=== PATIENT | female | born 1990 | race Caucasian/White ===

== ENCOUNTER 2020-07-17 18:05 | Emergency (ER) | payer OTHER, SELFPAY ==
--- NOTE | ~2020-07-17 | XR_ITS ---
EXAMINATION: XR chest 1V portable EXAM DATE: 07/17/2020 19:21 INDICATION: Chest pain, shortness of breath and cough. TECHNIQUE: Portable AP frontal chest x-ray was obtained. Comparison is made to prior examination from 01/16/2007. FINDINGS: The lungs are clear. There are no pleural effusions. The cardiomediastinal silhouette is within normal limits. There is no pneumothorax suspected. The bones and soft tissues are unremarkab le. IMPRESSION: No acute cardiopulmonary findings. Reviewed, dictated and finalized at location A.
--- NOTE | 2020-07-17 18:08 | ECG_ITS ---
Measurements Intervals [place] Rate: 107 P: 3 LA: 114 QRS: 47 QRSD: 87 T: 18 QT: 327 QTc: 438 Interpretive Statements SINUS TACHYCARDIA WITH SHORT LA INTERVAL BORDERLINE ST-T WAVE ABNORMALITY- INFERIOR LEADS ABNORMAL ECG Electronically Signed On 07-17-2020 19:34:24 CDT by Sukumar Singh D.O.
[2020-07-17 18:30] VITALS: BP 140/91; PULSE 116; RESP 20; TEMP 36.5; O2SAT 96
--- NOTE | 2020-07-17 19:07 | ED.CHESTPAIN ---
HPI - Chest Pain General Chief Complaint: Chest Pain Stated Complaint: Chest pain/ SOB Time Seen by Provider: 07/17/20 19:06 History of Present Illness HPI narrative: 29 yo female at 16 weeks gestation presents to the ED c/o chest pain, COugh. She has had chest pain, cough, congestion, wheezing, and SOB for the past 2 days. The pain is substernal pressure. It is worse with takinga deep breath or coughing. SHe says that she has similar symptoms every year at this time. It is usually relieved by albuterol, but this time it was not. She has been told that she has seasonal asthma. No fever, chills, calf pain/swelling, weakness. 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 Related Data Allergies Allergy/AdvReac Type Severity Reaction Status Date / Time No Known Allergies Allergy Mild Verified 06/03/11 08:27 Review of Systems Review of Systems: All systems reviewed & are unremarkable except as noted in HPI and below Constitutional: Constitutional: Denies fever(s) and Denies weakness ENT: Reports nasal congestion and Denies sore throat Cardiovascular: Cardiovascular: Reports chest pain Respiratory: Respiratory: Reports cough, Reports dyspnea and Reports wheezing Gastrointestinal: Gastrointestinal: Denies abdominal pain, Denies nausea and Reports vomiting Genitourinary: Genitourinary: Denies abnormal vaginal bleeding, Denies hematuria, Denies dysuria, Denies pelvic pain and Denies vaginal discharge Neurologic: Denies numbness and Denies weakness [facility] Family History Family History Father Family history of elevated blood lipids Mother Family history of liver disease Sibling Family history of diabetes mellitus in first degree relative Grandparent Family history of lung cancer Social History Social History Smoking status: Never smoker Alcohol intake: never Exam Const: General: healthy appearing, no acute distress and alert Orientation/consciousness: patient oriented x3 HENMT: Head: normal to inspection Neck: Neck: normal visual inspection and no lymphadenopathy Chest: Chest palpation & inspection: no tenderness Resp: Effort & Inspection: normal respiratory effort Auscultation: wheezes inspiratory wheezes and throughout Cardio: Jugular venous distension: no JVD Rate: regular rate Rhythm: regular rhythm Heart sounds: no murmurs GI: Inspection: non-distended GI Palp: Yes Soft to palpation and No Tenderness to palpation present (GI) Skin: General skin exam: normal color Neuro: General: patient oriented x3 and moves all extremities Speech: normal speech Extrem: General: no edema Other: no calf tenderness Psych: Appearance: well kempt Affect: normal affect Course Vital Signs Vital signs: Vital Signs Temperature 36.5 C 07/17/20 18:30 Pulse Rate 116 H 07/17/20 18:30 Respiratory Rate 20 07/17/20 18:30 Blood Pressure 140/91 H 07/17/20 18:30 Pulse Oximetry 96 07/17/20 18:30 Temperature 36.5 C 07/17/20 18:30 Pulse Rate 70 07/17/20 21:46 Respiratory Rate 18 07/17/20 21:46 Blood Pressure 132/78 07/17/20 21:46 Pulse Oximetry 99 07/17/20 21:46 MDM - Chest Pain MDM Narrative Medical decision making narrative: DD: Pneumonia, Bronchitis, COVID-19, asthma Medical Records Data Attestation: I reviewed the patient's medical records. Lab Data Attestation: I reviewed the patient's lab results. Result diagrams: 07/17/20 20:11 07/17/20 20:11 Labs: Lab Results 07/17/20 07/17/20 07/17/20 Range/Units 20:11 20:11 20:13 WBC 12.0 H (4.5-10.0) K/mm3 RBC 4.54 (4.2-5.4) M/mm3 Hgb 13.7 (12.0-15.0) g/dL Hct 40.5 (37.0-47.0) % MCV 89.2 (80-100) fl MCH 30.2 (26-34) pg MCHC 33.8 (32-36) g/dl RDW 13.5 (11.5-14.5) % Plt Count 248 (150-375) k/mm3 MPV 9.2 (7.4-10.4) f
[2020-07-17] MEDS: ALBUTEROL SULFATE NEB 2.5 MG/0.5 ML INH 5 MG INHALATION ×2 (19:35→21:25)
[2020-07-17 19:37] VITALS: PULSE 104; RESP 20
[2020-07-17 19:46] VITALS: PULSE 104; RESP 20
[2020-07-17 20:20] LABS: Basophils Percent Auto 0.3 % (0.2-1.2); Eosinophils Absolute Auto 0.2 K/mm3 (0-0.3); Eosinophils Percent Auto 1.9 % (0-4.4); Hematocrit 40.5 % (37.0-47.0); Hemoglobin 13.7 g/dL (12.0-15.0); Immature Granulocyte Absolute 0.03 K/mm3 (0.00-0.031); Immature Granulocyte Percent A 0.3 % (0-0.5); Lymphocytes Absolute Auto 1.33 K/mm3 (0.9-3.2); Lymphocytes Percent Auto 11.1 % (18.3-44.2); Mean Corpuscular HGB Conc 33.8 g/dl (32-36); Mean Corpuscular Hemoglobin 30.2 pg (26-34); Mean Corpuscular Volume 89.2 fl (80-100); Mean Platelet Volume 9.2 fl (7.4-10.4); Monocytes Absolute Auto 0.5 K/mm3 (0.1-0.6); Monocytes Percent Auto 4.3 % (2.6-8.5); Neutrophils Absolute Auto 9.8 K/mm3 (1.3-6.7); Neutrophils Percent Auto 82.1 % (45.5-73.1); Platelet Count Result 248 k/mm3 (150-375); Red Blood Count 4.54 M/mm3 (4.2-5.4); Red Cell Distribution Width 13.5 % (11.5-14.5)
[2020-07-17 20:28] LABS: Anion Gap 9 mmol/L (8-16); Blood Urea Nitrogen 4 mg/dL (7-17); Calcium 9.2 mg/dL (8.4-10.2); Carbon Dioxide 21 mmol/L (22-30); Chloride 106 mmol/L (98-107); Estimated CRCL calculation 164 ml/min; Estimated Glomerular Filt Rate > 60; Glucose 106 mg/dL (65-105); Potassium 3.5 mmol/L (3.4-5.0); Sodium 136 mmol/L (137-145)
[2020-07-17] MEDS: predniSONE 20 MG TABLET 40 MG PO (21:03)
[2020-07-17 21:46] VITALS: BP 132/78; PULSE 70; RESP 18; O2SAT 99
[2020-07-18 14:12] LABS: SARS-CoV-2 RNA PCR Negative
== END 2020-07-17 21:47 | disposition home or self-care (01) ==
PROVIDERS: Emergency Medicine; Emergency Provider Emergency Medicine; PCP Family Medicine Adolescent Medicine
DX: O99.512 Diseases of the respiratory system complicating pregnancy, second trimester (principal); J40 Bronchitis, not specified as acute or chronic; Z3A.16 16 weeks gestation of pregnancy; R00.0 Tachycardia, unspecified; R94.31 Abnormal electrocardiogram [ECG] [EKG]
CPT/HCPCS: 36415; 71045; 80048; 85025; 87635; 93005; 99283; C9803; J7512; U0003

== ENCOUNTER 2024-02-09 07:55 | Inpatient (IN) | payer OTHER, SELFPAY ==
[2024-02-09] VITALS (36 sets, daily range): BP systolic 106–153; BP diastolic 50–99; PULSE 87–126; RESP 15–36; TEMP 36.6–36.8; O2SAT 86–100; BMI 50.1
--- NOTE | ~2024-02-09 | XR_ITS ---
XR chest 2V DATE: 02/11/2024 10:37 INDICATION: Pneumonia TECHNIQUE: PA and lateral views COMPARISON: 02/09/2024 CTA chest FINDINGS: Normal heart size. No hilar or mediastinal enlargement. Minimal infiltrate or atelectasis i s suggested in the lower lung zones. The lungs otherwise appear clear. No pleural effusion or pulmona ry vascular congestion or pneumothorax. No hilar or mediastinal enlargement. IMPRESSION: Minimal infiltrate or atelectasis in the lower lung zones Reviewed, dictated and finalized at location A.
--- NOTE | ~2024-02-09 | CT_ITS ---
Clinical Indication: Dyspnea CT Scan of the Chest with Contrast: Technique: Contiguous sections were acquired throughout the chest after intravenous administration of 100 cc of Omnipaque 350. Dose reduction technique was used on this scan by utilizing automated expos ure control and iterative reconstruction technique. The dose-length product (DLP) was 973.40 mGy-cm. Findings: There is no evidence of any significant mediastinal, hilar or axillary lymphadenopathy. There is no f illing defect in the pulmonary arterial tree to suggest pulmonary embolus. There is no evidence of ao rtic dissection or aneurysm. There is no evidence of pleural or pericardial effusion. There is mild patchy ground glass opacity in the right middle lobe and left lower lobe, suspicious fo r pneumonia. Images through the upper abdomen reveal no abnormalities. Impression: No evidence of pulmonary embolus, aortic dissection, or aortic aneurysm. Mild patchy groundglass opacity right middle lobe and left lower lobe, compatible with pneumonia. Reviewed, dictated and finalized at [facility]. Impression: No evidence of pulmonary embolus, aortic dissection, or aortic aneurysm. Mild patchy groundglass opacity right middle lobe and left lower lobe, compatib le with pneumonia.
--- NOTE | 2024-02-09 07:58 | ECG_ITS ---
SEE SCANNED COPY FOR CONFIRMED REPORT MTDD
[2024-02-09 08:23] LABS: Basophils Absolute Auto 0.1 K/mm3 (0.0-0.1); Basophils Percent Auto 0.4 % (0.2-1.2); Eosinophils Absolute Auto 0.5 K/mm3 (0-0.3); Eosinophils Percent Auto 3.8 % (0-4.4); Hematocrit 40.1 % (37.0-47.0); Hemoglobin 12.2 g/dL (12.0-15.0); Immature Granulocyte Absolute 0.05 K/mm3 (0.00-0.031); Immature Granulocyte Percent A 0.4 % (0-0.5); Lymphocytes Absolute Auto 1.69 K/mm3 (0.9-3.2); Lymphocytes Percent Auto 12.2 % (18.3-44.2); Mean Corpuscular HGB Conc 30.4 g/dl (32-36); Mean Corpuscular Hemoglobin 23.8 pg (26-34); Mean Corpuscular Volume 78.2 fl (80-100); Mean Platelet Volume 9.5 fl (7.4-10.4); Monocytes Absolute Auto 0.6 K/mm3 (0.1-0.6); Monocytes Percent Auto 4.3 % (2.6-8.5); Neutrophils Absolute Auto 10.9 K/mm3 (1.3-6.7); Neutrophils Percent Auto 78.9 % (45.5-73.1); Platelet Count Result 367 k/mm3 (150-375); Red Blood Count 5.13 M/mm3 (4.2-5.4); Red Cell Distribution Width 15.6 % (11.5-14.5); White Blood Count 13.8 K/mm3 (4.5-10.0)
[2024-02-09 08:33] LABS: Alanine Aminotransferase 24 U/L (6-35); Albumin Level 4.8 g/dL (3.5-5.1); Alkaline Phosphatase 77 U/L (38-126); Anion Gap 11 mmol/L (4-12); Aspartate Amino Transferase 21 U/L (14-36); Blood Urea Nitrogen 9 mg/dL (7-17); Calcium 9.6 mg/dL (8.4-10.2); Carbon Dioxide 20 mmol/L (22-30); Chloride 109 mmol/L (98-107); Estimated CRCL calculation 147 ml/min; Estimated Glomerular Filt Rate > 60; Glucose 148 mg/dL (65-110); Lipase 46 U/L (23-300); Potassium 3.9 mmol/L (3.4-5.0); Sodium 140 mmol/L (137-145)
[2024-02-09 08:38] LABS: Prothrombin Time 13.5 Seconds (11.1-14.7)
[2024-02-09] MEDS: SODIUM CHLORIDE 0.9% IV 1,000 ML 999 ML IV CONT (08:38)
[2024-02-09] MEDS: ONDANSETRON INJ 4 MG/2 ML VIAL IV PUSH (08:38)
[2024-02-09 08:39] LABS: Partial Thromboplastin Time 27.7 Seconds (22.3-36.8)
[2024-02-09] MEDS: MECLIZINE HCL 25 MG TABLET PO (08:39)
--- NOTE | 2024-02-09 08:43 | ED.GENADULT ---
HPI - General Adult General Chief complaint: Chest Pain Stated complaint: SOB/chest pain Time Seen by Provider: 02/09/24 08:01 History of Present Illness HPI narrative: patient is a 33-year-old female who presents ER with shortness of breath. Sudden onset this morning when waking up. She has had a cough for the last couple of days. No documented fevers. Today she is also having chest tightness. She is feeling spinning vertigo that is associated with nausea and sweats. No known sick contacts. No alleviating factors. No history DVT/ PE. She does have pain with deep breath. Related Data Allergies Allergy/AdvReac Type Severity Reaction Status Date / Time No Known Allergies Allergy Mild Verified 02/09/24 08:11 Review of Systems Review of Systems: All systems reviewed & are unremarkable except as noted in HPI and below Constitutional: Constitutional: Reports no additional constitutional complaints ENT: Reports system reviewed and no additional complaints, except as documented Cardiovascular: Cardiovascular: Reports chest pain, Denies rapid heart rate, Denies radiating jaw, neck or arm pain and Denies slow heart rate Respiratory: Respiratory: Reports cough, Reports dyspnea and Denies wheezing Gastrointestinal: Gastrointestinal: Reports no additional gastrointestinal complaints Musculoskeletal: Musculoskeletal: Reports no additional musculoskeletal complaints [facility] Past Medical History Medical History (Updated 02/09/24 @ 19:26 by Fidencio Copeland MD) Healthy female adult Surgical History Surgical History (Updated 02/09/24 @ 19:24 by Fidencio Copeland MD) History of section Family History Family History Father Family history of elevated blood lipids Mother Family history of liver disease Sibling Family history of diabetes mellitus in first degree relative Grandparent Family history of lung cancer Social History Social History Smoking status: Never smoker Alcohol intake: never Substance use: never Do You Feel Safe in your Home?: Yes Lack of Transportation: YES Lack of Food: Never True Current Housing: I Have Housing Concerned About Future Housing: No Difficulty Paying Gas/Electric Bills: No Difficulty Paying for Meds: No Currently Unemployed: No Education: Bachelor's Degree Difficulty w/ Childcare or Family Care: No Spiritual care concerns: No Exam Narrative: GENERAL: anxious appearing, morbidly obese, and in distress. HEAD: Normocephalic, atraumatic. EYES: PERRL and EOMI. ENT: Mucous membranes moist. CHEST: very faint basilar wheezing. mild respiratory distress. HEART: Regular rate and rhythm. Normal peripheral pulses. ABDOMEN: Soft, nontender, nondistended. EXTREMITIES: Normal range of motion. No edema. SKIN: Warm, dry, no rash. NEURO: Alert and oriented x3. PSYCH: Normal mood and affect. Course Course Emergency Course: patient developing hypoxia while here. Hypoxia significant increased after nebulizer treatment. No pulmonary embolism. Patient does have pneumonia. Will add on viral panel. Patient started on IV antibiotics and is currently on high-flow O2. She will go to the IMU. Patient accepted by the hospitalist service. Vital Signs Vital signs: Vital Signs Pulse Rate 113 H 02/09/24 08:01 Respiratory Rate 18 02/09/24 08:01 Blood Pressure 153/99 H 02/09/24 08:01 Pulse Oximetry 92 02/09/24 08:01 Temperature 98.1 F 02/09/24 15:15 Pulse Rate 90 02/09/24 18:26 Respiratory Rate 16 02/09/24 18:26 Blood Pressure 126/73 02/09/24 15:15 Pulse Oximetry 100 02/09/24 15:15 Oxygen Delivery High Flow Nasal Cannula 02/09/24 12:53 Oxygen Flow Rate 7 02/09/24 12:53 Medical Decision Making Vital Signs Vital Signs: Vital Signs Pulse Rate 113 H 02/09/24 08:01 Respiratory Ra
[2024-02-09 08:48] LABS: Troponin I < 0.012 ng/mL (0.000-0.034)
[2024-02-09 08:56] LABS: D Dimer 0.27 ug/mL (<0.48)
[2024-02-09] MEDS: IPRATROPIUM 0.5 MG/ALBUTEROL SULFATE 2.5 MG AMPUL.NEB 3 ML INHALATION ×2 (09:33→18:20)
[2024-02-09] MEDS: ALBUTEROL SULFATE NEB 2.5 MG/3 ML INH 15 MG INHALATION (10:46)
[2024-02-09] MEDS: IPRATROPIUM BR 0.02% INH SOLN 0.5 MG/2.5 ML VIAL 1.5 MG INHALATION (10:46)
--- NOTE | 2024-02-09 11:19 | ECG_ITS ---
SEE SCANNED COPY FOR CONFIRMED REPORT MTDD
[2024-02-09] MEDS: ACETAMINOPHEN 325 MG TABLET 650 MG PO (11:56)
[2024-02-09 12:11] LABS: Troponin I < 0.012 ng/mL (0.000-0.034)
[2024-02-09 13:51] LABS: Influenza A QL RT-PCR Negative (Negative); Influenza B QL RT-PCR Negative (Negative); RSV RNA, RT-PCR Negative (Negative); SARS-CoV-2 RNA PCR Negative (Negative)
--- NOTE | 2024-02-09 14:16 | PM.IMHP ---
H&P: HPI History of Present Illness Date/Time: 02/09/24 20:10 Chief Complaint: Shortness of Breath Narrative: 33 y/o F presents here with shortness of breath with PMH of seasonal bronchitis and seasonal allergies. Patient presents here from home for further evaluation of shortness and chest pain. Symptoms started with sinus congestion/rhinorrhea and sinus tenderness on Tu. Then developed cough on Tue after she had to run out of after her dogs. Patient then developed shortness of breath this morning while she was laying on the cough. Tried to utilize a steamy shower to open up her lungs but it continued to worsen. Also utilized her two home inhalers without relief. While she was getting dressed after the shower she became dizzy and elected to come to the ED to be evaluated. Upon arrival patient's O2 sat was 92% and she was XX. Later developed hypoxia with lowest sat at 86%. Now requiring HFNC. Patient reports seasonal bronchitis/asthma. Former smoker - reports socially smoking 2-3 cigs per day but stopped once she had kids. 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 Denies fever, chills, body aches. Currently reporting a FRITZ, right sided, and worsens with coughing. Has hx of infrequent migraines. Had COVID in Sep, patient reports that she feels like her lungs had still not fully recovered. Initial VS at presentation: 98.2? F, HR 113, RR 18, 153/99, and 92% on RA. Now requiring HFNC. ED workup showed: WBC 13.8, no anemia, no significant electrolyte derangements, creatinine 0.6 and GFR >60, viral PCR negative, and troponin negative x2. Chest CTA showed no PE, dissection or aneurysm and mild patchy ground-glass opacities in the right middle lobe and left lower lobe. Review of Systems Review of Systems: All systems reviewed & are unremarkable except as noted in HPI and below PMFSH Past Medical History Medical History Bronchitis seasonal Healthy female adult Seasonal allergies Surgical History Surgical History (Updated 02/09/24 @ 20:46 by Miya Marie APRN) History of section History of tonsillectomy Family History Family History Father Family history of elevated blood lipids Mother Family history of liver disease Sibling Family history of diabetes mellitus in first degree relative Grandparent Family history of lung cancer Social History Social History Smoking status: Never smoker Alcohol intake: never Substance use: never Do You Feel Safe in your Home?: Yes Lack of Transportation: YES Lack of Food: Never True Current Housing: I Have Housing Concerned About Future Housing: No Difficulty Paying Gas/Electric Bills: No Difficulty Paying for Meds: No Currently Unemployed: No Education: Bachelor's Degree Difficulty w/ Childcare or Family Care: No Spiritual care concerns: No Meds Home Medications and Allergies Home Medications Medication Instructions Recorded Confirmed Type prednisone 20 mg tablet 40 mg PO DAILY #8 tabs 07/17/20 Rx Allergies Allergy/AdvReac Type Severity Reaction Status Date / Time No Known Allergies Allergy Mild Verified 02/09/24 08:11 Vital Signs Vital Signs - 24 hr 02/09/24 08:05 02/09/24 08:11 02/09/24 08:11 Temperature 98.2 F Pulse Rate 117 H Respiratory Rate 18 Blood Pressure 153/99 H Pulse Oximetry 94 88 L 92 Oxygen Delivery Room Air Nasal Cannula Oxygen Flow Rate 2 02/09/24 08:22 02/09/24 08:22 02/09/24 09:30 Temperature Pulse Rate 98 Respiratory Rate 23 H Blood Pressure Pulse Oximetry 89 L 93 Oxygen Delivery Nasal Cannula Nasal Cannula Oxygen Flow Rate 2 3 02/09/24 09:36 02/09/24 10:47 02/09/24 08:01 Temperature Pulse Rate 102 H 101 H 113 H Respirato
[2024-02-09 14:36] LABS: Troponin I < 0.012 ng/mL (0.000-0.034)
[2024-02-09] MEDS: AZITHROMYCIN 500 MG/NS 250 ML 500 MG/250 ML BAG 250 MG IVPB (16:46)
[2024-02-09 18:53] LABS: Appearance Urine Clear (Clear); Bilirubin Urine Negative (Negative); Blood Urine Negative (Negative); Color Urine Yellow (Yellow); Glucose Urine UA Negative (Negative); Ketones Urine Negative (Negative); Leukocyte Esterase Ur Negative LEU/UL (Negative); Nitrate Urine Negative (Negative); Protein Urine Negative (Negative); Specific Grav Ur 1.014 (1.001-1.035); Urobilinogen Urine 0.2 mg/dL (<2.0); pH Urine 6.5 (5.0-9.0)
[2024-02-09 18:55] LABS: Add Urine Microscopic? NO
[2024-02-09] MEDS: HYDROcodone/acetaminophen (*CRX) 5-325 MG TABLET 1 TAB PO ×2 (18:57→22:53)
[2024-02-09] MEDS: IBUPROFEN 400 MG TABLET PO (20:38)
[2024-02-09 21:13] LABS: Strep Group A RT-PCR NOT DETECTED (Negative)
[2024-02-09] MEDS: predniSONE 20 MG TABLET 40 MG PO (22:53)
[2024-02-10] VITALS (32 sets, daily range): BP systolic 106–140; BP diastolic 52–98; PULSE 80–112; RESP 14–22; TEMP 36.2–37.6; O2SAT 91–98
[2024-02-10] MEDS: IPRATROPIUM 0.5 MG/ALBUTEROL SULFATE 2.5 MG AMPUL.NEB 3 ML INHALATION ×4 (02:22→20:49)
[2024-02-10] MEDS: guaiFENesin/DEXTROMETHORPHAN 10 ML UDC PO ×4 (03:25→17:12)
[2024-02-10 04:23] LABS: Basophils Percent Auto 0.3 % (0.2-1.2); Eosinophils Absolute Auto 0.1 K/mm3 (0-0.3); Eosinophils Percent Auto 1.2 % (0-4.4); Hematocrit 36.9 % (37.0-47.0); Immature Granulocyte Absolute 0.04 K/mm3 (0.00-0.031); Immature Granulocyte Percent A 0.4 % (0-0.5); Lymphocytes Absolute Auto 0.66 K/mm3 (0.9-3.2); Lymphocytes Percent Auto 7.2 % (18.3-44.2); Mean Corpuscular HGB Conc 29.8 g/dl (32-36); Mean Corpuscular Hemoglobin 23.7 pg (26-34); Mean Corpuscular Volume 79.5 fl (80-100); Mean Platelet Volume 9.2 fl (7.4-10.4); Monocytes Absolute Auto 0.2 K/mm3 (0.1-0.6); Monocytes Percent Auto 2.3 % (2.6-8.5); Neutrophils Absolute Auto 8.1 K/mm3 (1.3-6.7); Neutrophils Percent Auto 88.6 % (45.5-73.1); Platelet Count Result 290 k/mm3 (150-375); Red Blood Count 4.64 M/mm3 (4.2-5.4); Red Cell Distribution Width 15.9 % (11.5-14.5); White Blood Count 9.1 K/mm3 (4.5-10.0)
[2024-02-10 04:33] LABS: Alanine Aminotransferase 21 U/L (6-35); Albumin Level 4.6 g/dL (3.5-5.1); Alkaline Phosphatase 75 U/L (38-126); Anion Gap 7 mmol/L (4-12); Aspartate Amino Transferase 20 U/L (14-36); Bilirubin,Total 0.9 mg/dL (0.2-1.3); Blood Urea Nitrogen 7 mg/dL (7-17); Calcium 9.6 mg/dL (8.4-10.2); Carbon Dioxide 23 mmol/L (22-30); Chloride 109 mmol/L (98-107); Estimated CRCL calculation 145 ml/min; Estimated Glomerular Filt Rate > 60; Glucose 170 mg/dL (65-110); Potassium 4.1 mmol/L (3.4-5.0); Sodium 139 mmol/L (137-145)
[2024-02-10 04:36] LABS: Platelet Estimate Adequate (Adequate)
[2024-02-10 04:37] LABS: Ovalocytes 1+; Schistocytes None Seen
[2024-02-10 04:39] LABS: Hemoglobin A1C 5.3 % (<5.7)
[2024-02-10] MEDS: HYDROcodone/acetaminophen (*CRX) 5-325 MG TABLET 1 TAB PO ×2 (07:35→22:16)
[2024-02-10] MEDS: predniSONE 20 MG TABLET 40 MG PO (07:35)
[2024-02-10] MEDS: AZITHROMYCIN 500 MG/NS 250 ML 500 MG/250 ML BAG 250 MG IVPB (08:54)
--- NOTE | 2024-02-10 10:54 | PM.IMPN ---
Progress Note: A&P Assessment and Plan (1) Pneumonia: Code(s): J18.9 - Pneumonia, unspecified organism Status: Acute (2) Sepsis: Code(s): A41.9 - Sepsis, unspecified organism Status: Acute (3) Hypoxia: Code(s): R09.02 - Hypoxemia Status: Acute Plan (1) Sepsis: ?Code(s): A41.9 - Sepsis, unspecified organism ?Status:?Acute ?Assessment and Plan: - meets SIRS criteria: HR, RR. - procalcitonin: 0.0 - IV fluids: given 1L NS bolus, will give second LR bolus - suspected source: PNA - started on ceftriaxone and azithromycin on 02/08 - blood cultures drawn on 02/08 - UA ordered (2) Hypoxia: ?Code(s): R09.02 - Hypoxemia ?Status:?Acute ?Assessment and Plan: - initially 92% on RA, now requiring 7L HFNC - Chest CTA: No evidence of pulmonary embolus, aortic dissection, or aortic aneurysm. Mild patchy ground glass opacity right middle lobe and left lower lobe, compatible with pneumonia. - viral PCR negative for flu/covid/rsv - no history of underlying asthma or COPD, does have seasonal allergies and seasonal bronchitis that has previously required an inhaler - admit to IMU due to HFNC requirement (3) Pneumonia: ?Code(s): J18.9 - Pneumonia, unspecified organism ?Status:?Acute ?Assessment and Plan: - Chest CTA: Mild patchy groundglass opacity right middle lobe and left lower lobe, compatible with pneumonia. - risk factors:? known sick contact, son had strep and currently works in healthcare - started on CAP tx:? ceftriaxone and azithromycin on 02/08 - prednisone 40 mg p.o. x 5 days - Viral PCR negative - sputum culture - strep PCR - currently requiring supplemental O2 - 7L HFNC Found to have pneumonia and developed hypoxia during initial evaluation.? Currently requiring 7 L high-flow nasal cannula.? Met sirs criteria, however procalcitonin is 0.? Blood cultures pending.? Has known sick contact, son had strep last week.? Currently reporting headache.? Strep PCR ordered.? Viral PCR negative for COVID flu and RSV.? Adding steroid course. Subjective Date/time seen: 02/10/24 10:54 Interval history: patient is afebrile, blood pressure stable, patient is on 3 L nasal cannular, blood culture pending, last review, group B strep negative Exam Narrative: GENERAL: Pleasant, in no acute distress. Well-nourished. - EYES: EOMI. Anicteric. - HENT: Moist mucous membranes. - LUNGS: Clear to auscultation bilaterally, no wheezing, rhonchi, or rales. - CARDIOVASCULAR: Regular rate and rhythm. No murmur. No JVD. - ABDOMEN: Soft, non-tender and non-distended. No palpable masses. - EXTREMITIES: No edema. Peripheral pulses 2+. Non-tender. - NEUROLOGIC: No focal neurological deficits. CN II-XII grossly intact. - PSYCHIATRIC: Awake, Alert and oriented x 3. Appropriate mood and affect. - SKIN: No rashes or lesions. Warm. - LYMPH: No cervical lymphadenopathy. Objective Data Vital Signs Vital Signs: Vital Signs - 24 hr 02/09/24 11:15 02/09/24 12:22 02/09/24 12:22 Temperature Pulse Rate 118 H Respiratory Rate 21 H Blood Pressure 134/77 Pulse Oximetry 98 86 L 87 L Oxygen Delivery Nasal Cannula Nasal Cannula Oxygen Flow Rate 1 2 02/09/24 12:23 02/09/24 12:29 02/09/24 12:29 Temperature Pulse Rate Respiratory Rate Blood Pressure Pulse Oximetry 92 88 L 93 Oxygen Delivery Nasal Cannula Nasal Cannula Nasal Cannula Oxygen Flow Rate 3 3 4 02/09/24 12:34 02/09/24 12:34 02/09/24 11:34 Temperature Pulse Rate 126 H Respiratory Rate 22 H Blood Pressure Pulse Oximetry 88 L 93 99 Oxygen Delivery Nasal Cannula Nasal Cannula Oxygen Flow Rate 4 6 02/09/24 11:50 02/09/24 12:00 02/09/24 12:01 Temperature Pulse Rate 114 H 114 H 108 H Respiratory Rate 24 H 28 H 34 H Blood Pressure 136/72 Pulse Oximetry 93 91 91 Oxygen Delivery Oxygen Flow Rate 02/09/24 12:15 02/09/24 12:30
[2024-02-10] MEDS: ACETAMINOPHEN 325 MG TABLET 650 MG PO ×2 (11:24→20:13)
--- NOTE | 2024-02-10 14:57 | PM.IMPN ---
Progress Note: A&P Assessment and Plan (1) Pneumonia: Code(s): J18.9 - Pneumonia, unspecified organism Status: Acute Assessment and Plan: Continue with IV antibiotics. Repeat chest x-ray in the morning. (2) Sepsis: Code(s): A41.9 - Sepsis, unspecified organism Status: Acute Assessment and Plan: Stable on current medications, will continue current treatment (3) Hypoxia: Code(s): R09.02 - Hypoxemia Status: Acute Assessment and Plan: Stable on current medications, will continue current treatment Repeat chest x-ray. Continue with oxygen and IV antibiotics. Plan Continue IV antibiotics. Monitor labs and culture. Repeat chest x-ray morning Full code. DVT prophylaxis ordered. Subjective Date/time seen: 02/10/24 14:57 Interval history: Patient was seen during the rounds today. Feeling slightly better. Decreased shortness of breath. No chest pain. No abdominal pain, nausea or vomiting. Review of Systems Review of Systems: All systems reviewed & are unremarkable except as noted in HPI and below Exam Const: General: comfortable and no acute distress Other: , female, young, nontoxic appearance HENMT: Face/Nose/Sinus: Normal nares present Mouth: Yes moist mucous membranes Other: HFNC in place. Tonsillar pillars free of erythema. Tonsils surgically absent. Eyes: General: appearance normal, both eyes and all related structures Sclera: sclerae normal Pupils: Equal, round and reactive pupils present EOM: EOMs intact bilaterally Resp: Other: Air entry is decreased, few rales at the bases. Cardio: Rate: regular rate Rhythm: regular rhythm Other: S1-S2 present without murmur, rub, ectopy Skin: General skin exam: normal color and no rashes or lesions noted Wounds: no wounds Neuro: Cranial nerves: Yes Equal, round and reactive pupils present Speech: normal speech Motor exam (neuro): 5/5 motor strength present throughout Sensory Exam: normal sensation Other: A&O x4 Psych: Mental Status: mental status grossly normal Affect: normal affect Other: Good insight and judgment, pleasant Objective Data Vital Signs Vital Signs: Vital Signs - 24 hr 02/09/24 15:15 02/09/24 16:00 02/09/24 18:20 Temperature 36.7 C Pulse Rate 102 H 97 87 Respiratory Rate 22 H 16 Blood Pressure 126/73 Pulse Oximetry 100 Oxygen Delivery Oxygen Flow Rate 02/09/24 18:26 02/09/24 18:00 02/09/24 20:00 Temperature 36.6 C Pulse Rate 90 123 H 101 H Respiratory Rate 16 16 Blood Pressure 117/50 L Pulse Oximetry 96 Oxygen Delivery Oxygen Flow Rate 02/09/24 20:00 02/09/24 20:00 02/09/24 22:00 Temperature Pulse Rate 99 104 H Respiratory Rate Blood Pressure Pulse Oximetry 92 Oxygen Delivery High Flow Nasal Cannula Oxygen Flow Rate 7 02/09/24 23:48 02/10/24 00:00 02/10/24 00:00 Temperature 36.8 C Pulse Rate 90 86 Respiratory Rate 18 Blood Pressure 113/55 L Pulse Oximetry 97 93 Oxygen Delivery High Flow Nasal Cannula Oxygen Flow Rate 7 02/10/24 02:22 02/10/24 02:30 02/10/24 02:00 Temperature Pulse Rate 87 88 80 Respiratory Rate 16 16 Blood Pressure Pulse Oximetry Oxygen Delivery Oxygen Flow Rate 02/10/24 04:00 02/10/24 04:00 02/10/24 04:00 Temperature 36.2 C L Pulse Rate 85 86 Respiratory Rate 20 Blood Pressure 114/67 Pulse Oximetry 91 92 Oxygen Delivery High Flow Nasal Cannula Oxygen Flow Rate 7 02/10/24 06:00 02/10/24 07:40 02/10/24 08:00 Temperature 37.3 C Pulse Rate 93 94 Respiratory Rate 14 Blood Pressure 138/88 Pulse Oximetry 96 96 Oxygen Delivery High Flow Nasal Cannula Oxygen Flow Rate 4 02/10/24 08:35 02/10/24 08:35 02/10/24 08:50 Temperature Pulse Rate 91 Respiratory Rate 18 Blood Pressure Pulse Oximetry 97 96 Oxygen Delivery Nasal Cannula Nasal Cannula Oxy
[2024-02-10] MEDS: BENZONATATE 100 MG CAPSULE PO (21:21)
[2024-02-10] MEDS: PANTOPRAZOLE 40 MG TABLET PO (22:12)
[2024-02-10] MEDS: CALCIUM CARBONATE (TUMS) 500 MG (200 MG ELEMENTAL) PO (22:12)
[2024-02-11] VITALS (17 sets, daily range): BP systolic 110–138; BP diastolic 58–86; PULSE 73–113; RESP 16–20; TEMP 36.4–37.1; O2SAT 94–99
[2024-02-11] MEDS: guaiFENesin/DEXTROMETHORPHAN 10 ML UDC PO (00:26)
[2024-02-11] MEDS: IPRATROPIUM 0.5 MG/ALBUTEROL SULFATE 2.5 MG AMPUL.NEB 3 ML INHALATION ×4 (03:15→14:04)
[2024-02-11] MEDS: BENZONATATE 100 MG CAPSULE PO ×2 (03:18→08:58)
[2024-02-11] MEDS: FLUTICASONE/SALMETEROL 115-21 MCG INHALER 1 PUFF 2 PUFF INHALATION (08:55)
[2024-02-11] MEDS: predniSONE 20 MG TABLET 40 MG PO (08:58)
[2024-02-11] MEDS: PANTOPRAZOLE 40 MG TABLET PO (08:58)
[2024-02-11] MEDS: AZITHROMYCIN 500 MG/NS 250 ML 500 MG/250 ML BAG 250 MG IVPB (08:59)
[2024-02-11] MEDS: ENOXAPARIN 40 MG/0.4 ML SYRINGE SUB-Q (08:59)
--- NOTE | 2024-02-11 14:47 | PM.DS ---
DS: Admitting Diagnosis Discharge Date 02/11/24 Admitting Diagnosis Shortness of Breath DS: Discharge Diagnosis Discharge Diagnosis (1) Pneumonia: Code(s): J18.9 - Pneumonia, unspecified organism Status: Acute (2) Sepsis: Code(s): A41.9 - Sepsis, unspecified organism Status: Acute (3) Hypoxia: Code(s): R09.02 - Hypoxemia Status: Acute (4) Obesity: Code(s): E66.9 - Obesity, unspecified Status: Acute DS: Summary Hospital Course Reason for hospitalization: 33yo female with seasonal bronchitis and seasonal allergies here for shortness of breath. Please see H&P for details. Hospital Course: Patient presents with SOB. She was mildly tachycardic (113) but not hypoxic initially but ultimately required HFNC. WBC was 13.8. No anemia and no significant electrolyte derangements. Creatinine 0.6. COVID, influenza and RSV PCR negative. Troponin negative x3. Procalcitonin was negative. Chest CTA was negative for PE, dissection or aneurysm and mild patchy ground-glass opacities in the right middle lobe and left lower lobe. She was started on Rocephin and Azithromycin. She has seasonal asthma and was started on Prednisone as well. She was able to be weaned to room air. She may have had hypoxia overnight and oxygen started but easily weaned back to room air. She is earger for discharge and feels well. She overall did well and was able to be discharged home on 02/11/24. Status at Discharge Cognitive/behavioral status at discharge: stable Time Spent with Patient Time attestation: Total time spent providing and/or coordinating discharge services: 35 minutes Time spent: Greater than 30 minutes Exam Narrative: AF 98.8 123/86 110 20 95% ra Gen - NARD Chest - CTA bilaterally, nml RR CV - RRR S1/S2. Tele showing sinus tachycardia Abd - Soft, NT/ND, Positive BS Ext - No pedal edema Neuro - Alert and oriented. Nonfocal exam. Psych - Nml mood and affect Skin - Warm and dry DS: Data Data Completed and Pending Labs on day of discharge: Preliminary micro results at discharge 02/09/24 22:48 Sputum Culture - Preliminary Sputum 02/09/24 13:52 Blood Culture - Preliminary Blood 02/09/24 14:00 Blood Culture - Preliminary Blood Discharge Plan Discharge Attending physician on discharge: Damion Allen Discharging Clinician: Damion Allen Anticipated Discharge Date/Time: 02/11/24 15:00 Patient Disposition: Home, Self-Care Activity: as tolerated Diet: heart healthy Discharge Instructions: Start your antibiotics in the morning of 02/12/24. Please complete your antibiotic course even if you are starting to feel well. Contact your doctor or call 911 and come to the Emergency Room if you have fevers, lightheadedness with standing or other worrisome symptoms. Avoid NSAIDs (ibuprofen, naproxen, Aleve). Tylenol is safe to take. Follow-up with your primary care provider in 1-2 weeks. Please call for appointment. Follow-up with [facility] to arrange for sleep study. Please call for an appointment Thank you for using [facility] for your health care needs. Patient Instructions: Antibiotic Form Stand Alone Forms: General Discharge Information Follow-up/Referrals: Pauline Dawson MD [Physician] - Call for Appointment Lm,Sandra Verdugo MD [Primary Care Provider] - Call for Appointment Discharge Medications: New amoxicillin-pot clavulanate 875-125 mg tablet 1 tablet PO Q12H 4 Days Qty: 8 0RF Rx Instructions: start on 02/12/24 in the morning prednisone 20 mg Tablet 40 mg PO DAILY@0800 2 Days Qty: 4 0RF albuterol sulfate [ProAir HFA] 90 mcg/actuation HFA aerosol inhaler 2 puff inhalation QID PRN (Reason: shortness of breath or wheezing) Qty: 6.7 0RF azithromycin 250 mg tablet 250 mg PO DAILY 2 Days Qty: 2 0RF Rx Instructions: Start on 02/12/24 in the morning. Continu
--- NOTE | 2024-02-13 09:40 | PC.NURSE ---
Sputum cx is negative. Dr. Alejandro ackerman.
--- NOTE | 2024-02-15 09:42 | PC.NURSE ---
Blood cx are negative. Dr. Alejandro ackerman.
== END 2024-02-11 15:53 | disposition home or self-care (01) | DRG 871 ==
LOC: ANHED 08:28 → ANHIMU 14:28
PROVIDERS: Student in an Organized Health Care Education/Training Program; Admitting Provider Hospitalist; Emergency Provider Emergency Medicine; PCP Internal Medicine; Visit Provider Internal Medicine
DX: A41.9 Sepsis, unspecified organism (principal); J18.9 Pneumonia, unspecified organism; Z68.43 Body mass index [BMI] 50.0-59.9, adult; R09.02 Hypoxemia; E66.9 Obesity, unspecified; E66.01 Morbid (severe) obesity due to excess calories; Z20.822 Contact with and (suspected) exposure to COVID-19
CPT/HCPCS: 36415; 71046; 71275; 80053; 81003; 81025; 83036; 83690; 84145; 84484; 85025; 85380; 85610; 85730; 87040; 87070; 87205; 87637; 87651; 93005; 94640; 96361; 96365; 96375; 99285; A9270; G0378; J0456; J0696; J1650; J2405; J7030; J7512; Q9967